=== PATIENT | male | born 1945 | race Caucasian/White ===

== ENCOUNTER 2020-09-07 16:05 | Inpatient (IN) | payer MEDICARE ==
[~2020-09-07] VITALS: Ht 167.6 cm; Wt 94.8 kg
[~2020-09-07 16:05] MED LIST: ALBUTEROL2.5 MG/3 M INH; BACTRIM DS TAB1 EACH PO; BACTROBAN OINT22 GM EXT; CONSTULOSE10 GM/15 M PO; CORGARD20 MG PO; DIPROSONE 0.05%15 GM EXT; EUTHYROX75 MCG PO; FEOSOL325 MG PO; FERROUS SULFAT325 MG PO; FLONASE 0.05% N16 GM; FLONASE ALLER15.8 ML; FUROSEMIDE20 MG PO; GABAPENTIN400 MG PO; GEMFIBROZIL600 MG PO; HYDROCHLOROTHIA25 MG PO; K-DUR TAB 10 M10 MEQ PO; LEVAQUIN500 MG PO; LOPID TAB 600600 MG PO; MAGOX 400400 MG PO; METFORMIN ER1000 MG PO; NEURONTIN 400400 MG PO; NOVOLOG100 UNIT/1 SC; PROTONIX40 M1 PO; REQUIP0.25 MG PO; SINGULAIR10 MG PO; SULFAMETHOXAZO1 EACH PO; SYMBICORT 16010.2 GM INH; TRESIBA100 UNIT/1 SQ; VASOTEC20 MG PO
[2020-09-07 19:14] LABS: HEMOGLOBIN 10.5 gm/dl (14.0-17.5); RED BLOOD COUNT 3.82 M/UL (4.20-5.50); WHITE BLOOD COUNT 6.4 K/UL (4.5-11.0)
[2020-09-07 19:36] LABS: BUN/CREATININE RATIO 18 (0-10)
[2020-09-08] MEDS ORDERED: LASIX40 MG PO (00:06)
[2020-09-08 05:28] LABS: HEMOGLOBIN 10.8 gm/dl (14.0-17.5); RED BLOOD COUNT 3.87 M/UL (4.20-5.50); WHITE BLOOD COUNT 5.2 K/UL (4.5-11.0)
[2020-09-08 05:59] LABS: BUN/CREATININE RATIO 15 (0-10)
[2020-09-09 05:22] LABS: HEMOGLOBIN 10.5 gm/dl (14.0-17.5); RED BLOOD COUNT 3.78 M/UL (4.20-5.50)
[2020-09-09 05:28] LABS: BUN/CREATININE RATIO 15 (0-10)
[2020-09-10 05:48] LABS: HEMOGLOBIN 10.8 gm/dl (14.0-17.5); RED BLOOD COUNT 3.92 M/UL (4.20-5.50); WHITE BLOOD COUNT 6.9 K/UL (4.5-11.0)
[2020-09-10 06:09] LABS: BUN/CREATININE RATIO 14 (0-10)
== END 2020-09-10 13:28 | disposition home or self-care (01) | DRG 436 ==
LOC: ER1 16:05 → M/S 23:53 → CDU 23:53 → M/S 23:53
PROVIDERS: Internal Medicine; Physician Assistant; ADMIT Internal Medicine
DX: C78.7 Secondary malignant neoplasm of liver and intrahepatic bile duct (principal); C16.9 Malignant neoplasm of stomach, unspecified; K76.6 Portal hypertension; E44.0 Moderate protein-calorie malnutrition; D61.818 Other pancytopenia; E87.2 Acidosis; E87.1 Hypo-osmolality and hyponatremia; I42.9 Cardiomyopathy, unspecified; Z68.1 Body mass index [BMI] 19.9 or less, adult; Z20.822 Contact with and (suspected) exposure to COVID-19; I86.4 Gastric varices; E78.5 Hyperlipidemia, unspecified; E03.9 Hypothyroidism, unspecified; K70.31 Alcoholic cirrhosis of liver with ascites; R62.7 Adult failure to thrive; R00.1 Bradycardia, unspecified; I11.9 Hypertensive heart disease without heart failure; R63.4 Abnormal weight loss; K59.00 Constipation, unspecified; D69.6 Thrombocytopenia, unspecified; D64.9 Anemia, unspecified; E11.43 Type 2 diabetes mellitus with diabetic autonomic (poly)neuropathy; K75.81 Nonalcoholic steatohepatitis (NASH); Z90.3 Acquired absence of stomach [part of]; Z79.4 Long term (current) use of insulin; Z87.891 Personal history of nicotine dependence
CPT/HCPCS: 36415; 80048; 80053; 81001; 82140; 82150; 82550; 82553; 82607; 82746; 82962; 83036; 83605; 83690; 83735; 84100; 84484; 85025; 85027; 85610; 86304; 87040; 87086; 94640; 94664; 94760; 96372; 99285; G0378; J1650; J2405; J7030; Q9967; U0002